=== PATIENT | male | born 1975 | race Caucasian/White ===

== ENCOUNTER 2018-09-27 11:22 | Outpatient (CLI) | payer OTHER ==
--- NOTE | 2018-09-27 14:55 | XRAY Report ---
Reason: PAIN IN RIGHT WRIST Procedure Date: 09/27/2018 Accession Number: [id number] / [id number] Procedure: XR - Wrist 4 View RT CPT Code: FULL RESULT: EXAM: RIGHT WRIST RADIOGRAPHY EXAM DATE: 09/27/2018 11:43 AM. CLINICAL HISTORY: Pain in right wrist. COMPARISON: None. TECHNIQUE: 4 views. FINDINGS: Bones: Normal. No fractures or bone lesions. Joints: Normal. No subluxations. Soft Tissues: Normal. No soft tissue swelling. IMPRESSION: No fracture or dislocation is identified. RADIA
== END 2018-09-27 11:23 | disposition home or self-care (01) ==
LOC: DI 11:22
PROVIDERS: ATTEND Nurse Practitioner Family
DX: M25.531 Pain in right wrist (principal)

== ENCOUNTER 2019-02-21 13:13 | Outpatient (CLI) | payer OTHER ==
--- NOTE | 2019-02-21 16:05 | Ultrasound Report ---
Reason: HEPATITIS C Procedure Date: 02/21/2019 Accession Number: [id number] / [id number] Procedure: US - Abdomen Limited CPT Code: FULL RESULT: EXAM: ABDOMEN ULTRASOUND LIMITED, RUQ EXAM DATE: 02/21/2019 03:26 PM. CLINICAL HISTORY: Hepatitis C. COMPARISON: None. TECHNIQUE: Real-time scanning was performed with static images obtained. FINDINGS: Liver: Using kidneys as internal control, parenchymal echogenicity is mildly increased with relatively preserved echotexture. This limits sensitivity for underlying masses. No solid masses identified. The liver measures at least 17.5 cm. A simple appearing 1.1 cm cyst is seen in the left lobe. Main portal vein flow: Hepatopetal. Gallbladder: Normal. No stones, wall thickening, or sonographic Elliott's sign. Biliary System: CBD measures 3 mm. No intrahepatic or extrahepatic ductal dilatation. Other: Right kidney measures up to 12.1 cm in maximal sagittal dimensions and there is no hydronephrosis. IMPRESSION: Mildly increased parenchymal echogenicity which is nonspecific but can be seen with parenchymal disease such as steatosis. RADIA
== END 2019-02-21 13:14 | disposition home or self-care (01) ==
LOC: DI 13:13
PROVIDERS: ATTEND Physician Assistant
DX: B19.20 Unspecified viral hepatitis C without hepatic coma (principal)
CPT/HCPCS: 76705

== ENCOUNTER 2019-06-13 11:01 | Outpatient (CLI) | payer OTHER | END 2019-06-13 11:02 | disposition home or self-care (01) | LOC: RT 11:01 | PROVIDERS: ATTEND Nurse Practitioner Family | DX: I10 Essential (primary) hypertension (principal) | CPT/HCPCS: 93005 ==

== ENCOUNTER 2019-06-20 10:54 | Outpatient (CLI) | payer OTHER ==
[2019-06-20 17:43] LABS: BASOPHILS % (AUTO) 0.8 %; EOSINOPHILS # (AUTO) 0.1 10^3/uL (0.0-0.7); EOSINOPHILS % (AUTO) 2.7 %; HGB - HEMOGLOBIN 14.1 g/dL (14.0-18.0); LYMPHOCYTES # (AUTO) 1.1 10^3/uL (1.5-3.5); LYMPHOCYTES % (AUTO) 20.5 %; MEAN CORPUSCULAR HEMOGLOBIN 30.3 pg (27.0-31.0); MEAN CORPUSCULAR HGB CONC 31.7 g/dL (32.0-36.0); MEAN CORPUSCULAR VOLUME 95.5 fL (80.0-94.0); MONOCYTES # (AUTO) 0.4 10^3/uL (0.0-1.0); MONOCYTES % (AUTO) 6.9 %; NEUTROPHILS # (AUTO) 3.6 10^3/uL (1.5-6.6); NEUTROPHILS % (AUTO) 68.9 %; PLT - PLATELET COUNT 123 10^3/uL (130-450); RED BLOOD COUNT 4.66 10^6/uL (4.70-6.10); RED CELL DISTRIBUTION WIDTH 12.4 % (12.0-15.0); WHITE BLOOD COUNT 5.2 x10^3/uL (4.8-10.8)
[2019-06-20 17:52] LABS: ALBUMIN 4.5 g/dL (3.2-5.5); ALBUMIN/GLOBULIN RATIO 1.4 (1.0-2.2); BILIRUBIN,DIRECT 0.2 mg/dL (0.1-0.5); BILIRUBIN,TOTAL 1.1 mg/dL (0.2-1.0); CALCIUM 9.7 mg/dL (8.5-10.3); CREATININE 0.8 mg/dL (0.6-1.2); TOTAL PROTEIN 7.8 g/dL (6.7-8.2)
[2019-06-21 11:32] LABS: HEPATITIS C ANTIBODY REACTIVE (NON-REACTIVE)
[2019-06-24 19:26] LABS: HCV RNA QNT <1.18 NOT DETECTED Log IU/mL (NOT DETECTED); HCV RNA QUANT RT PCR <15 NOT DETECTED IU/mL (NOT DETECTED)
== END 2019-06-20 10:55 | disposition home or self-care (01) ==
LOC: LAB.S 10:54
PROVIDERS: ATTEND Physician Assistant
DX: B19.20 Unspecified viral hepatitis C without hepatic coma (principal); I10 Essential (primary) hypertension
CPT/HCPCS: 36415; 80053; 80076; 82248; 84443; 85025; 86803; 87522

== ENCOUNTER 2022-12-26 19:26 | Emergency (ER) | payer OTHER ==
[2022-12-26 20:09] VITALS: BP 160/109
[2022-12-26] MEDS ORDERED: BUFFERED LIDOCAINE 10 ML SYRINGE SUBQ STA (21:43)
[2022-12-26] MEDS ORDERED: SULFAMETH/TRIMETH DS 800/160 MG TABLET PO STA (21:47)
--- NOTE | 2022-12-26 21:47 | ED Physician Documentation ---
PD HPI WOUND RECHECK - Stated complaint Stated Complaint: CHIN PAIN - Chief complaint Chief Complaint: Wound - Histroy obtained from History obtained from: Patient - Additional information Additional information: 47-year-old gentleman with history of hypertension presents with 2 complaints. 1. He has had cyst without drainage that is painful on the right side of the chin for the last couple of weeks. 2. He thinks he has ingrown toenails. PD PAST MEDICAL HISTORY - Present Medications Home Medications: Ambulatory Orders Medication Instructions Recorded Confirmed Sulfamethox/Trimeth 800/160 1 each PO BID #14 tablet 12/26/22 [Bactrim Ds 800/160] Terbinafine [Lamisil] 1 tab PO DAILY #84 tablet 12/26/22 - Allergies Allergies/Adverse Reactions: Allergies Allergy/AdvReac Type Severity Reaction Status Date / Time No Known Drug Allergies Allergy Verified 12/26/22 20:09 PD ED PE NORMAL - Vitals Vital signs reviewed: Yes - General General: Alert and oriented X 3, No acute distress - HEENT HEENT: Other (There is a small cyst/abscess with mild overlying cellulitis on the right side of the chin) - Extremities Extremities: Other (He has onychial mycosis of the great toenails bilaterally, they are not ingrown) - Neuro Neuro: Alert and oriented X 3, Normal speech Results - Vitals Vitals: Vital Signs - 24 hr 12/26/22 12/26/22 12/26/22 20:07 21:43 21:51 Temperature 36.1 C L Heart Rate 87 Respiratory 17 16 17 Rate Blood Pressure 160/109 H O2 Saturation 100 Oxygen O2 Source Room air Procedures - Abscess I&D (location) Right chin Preparation: Alcohol, Lidocaine 1% Incision: Incised with scalpel (2 stab incisions were made, no purulent material was obtained.) Other: Antibiotic prescribed Departure - Departure Disposition: 01 Home, Self Care Clinical Impression: Onychomycosis, Abscess Condition: Good Record reviewed to determine appropriate education?: Yes Instructions: ED Abscess IandD, ED Nail Infec Fungal Prescriptions: Sulfamethox/Trimeth 800/160 [Bactrim Ds 800/160] 1 each PO BID #14 tablet Terbinafine [Lamisil] 1 tab PO DAILY #84 tablet Comments: Return if worse, especially if you develop increased pain, fevers, cannot keep down the medication. Otherwise follow-up with your physician in approximately 2-3 days.
== END 2022-12-26 22:27 | disposition home or self-care (01) ==
LOC: ED 19:26
DX: L02.01 Cutaneous abscess of face (principal); B35.1 Tinea unguium
CPT/HCPCS: 10060; 99283; A9270; 87070; 87205

== ENCOUNTER 2024-03-20 22:29 | Outpatient (CLI) | payer OTHER ==
--- NOTE | 2024-03-21 12:02 | Ultrasound Report ---
PROCEDURE: Abdomen Limited INDICATIONS: ABD HERNIA TECHNIQUE: Real-time focused scanning was performed of the abdomen, with image documentation. COMPARISONS: None. Findings and impression: Left lower quadrant area of concern was imaged. There is a fat-containing left inguinal hernia with n kallie measuring 1.1 cm, partially reducible. Reviewed by: Mirza Antonio MD on 03/21/2024 12:00 PM PDT Approved by: Mirza Antonio MD on 03/21/2024 12:00 PM PDT Station ID: [id number]
== END 2024-03-20 22:30 | disposition home or self-care (01) ==
LOC: DI 22:29
PROVIDERS: ATTEND Physician Assistant Medical
DX: K40.90 Unilateral inguinal hernia, without obstruction or gangrene, not specified as recurrent (principal)